=== PATIENT | female | born 1975 | race Caucasian/White ===

== ENCOUNTER 2017-03-26 08:57 | Emergency (ER) | payer MEDICAID ==
[~2017-03-26] VITALS: Ht 177.8 cm; Wt 56.0 kg
[~2017-03-26 08:57] MED LIST: HYDR25TA PO; OXYB5TAB11 PO
[2017-03-26 10:17] VITALS: BP 170/99
[2017-03-26 10:46] LABS: CLARITY URINE CLEAR (CLEAR); COLOR URINE DARK YELLOW (YELLOW); KETONES URINE NEGATIVE (NEGATIVE); LEUKOCYTE ESTERASE URINE 3+ (NEGATIVE); NITRITE URINE POSITIVE (NEGATIVE); OCCULT BLOOD URINE 2+ (NEGATIVE); PH URINE 6.5 (4.5-8.0); PROTEIN URINE 1+ (NEGATIVE)
== END 2017-03-26 13:37 | disposition home or self-care (01) ==
LOC: ER 09:38
DX: N39.0 Urinary tract infection, site not specified (principal); I10 Essential (primary) hypertension
CPT/HCPCS: 81001; 81025; 99283

== ENCOUNTER 2017-07-07 10:08 | Emergency (ER) | payer MEDICAID ==
[~2017-07-07] VITALS: Ht 147.3 cm; Wt 60.0 kg
[2017-07-07] MEDS ORDERED: ONDANSETRON 4MG ODT PO ONE (12:45)
[2017-07-07] MEDS ORDERED: ACETAMINOPHEN 500MG TABLET PO ONE (12:45)
[2017-07-07 14:03] VITALS: BP 130/72
== END 2017-07-07 14:26 | disposition home or self-care (01) ==
LOC: ER 14:15
DX: B34.9 Viral infection, unspecified (principal); I10 Essential (primary) hypertension
CPT/HCPCS: 99283; Q0162

== ENCOUNTER 2018-01-08 11:28 | Emergency (ER) | payer MEDICAID ==
[~2018-01-08] VITALS: Ht 147.3 cm; Wt 55.0 kg
[2018-01-08 12:13] LABS: BASOPHILS % 0.2 % (0.0-2.0); EOSINOPHILS % 0.4 % (0.0-5.0); HEMATOCRIT. 38.9 % (36.0-48.0); HEMOGLOBIN. 13.7 g/dL (12.0-16.0); LYMPHOCYTES % 27.3 % (20.0-50.0); MEAN PLATELET VOLUME 9.8 fl (7.4-10.4); MONOCYTES % 4.8 % (2.0-8.0); NEUTROPHILS % 67.3 % (40.0-76.0); PLATELET 179 x1000/uL (130-400); RED BLOOD CELL COUNT 4.27 mill/uL (4.2-5.4); RED CELL DISTRIBUTION WIDTH 13.2 % (11.6-14.6)
[2018-01-08 12:19] LABS: CHLORIDE 104 mEq/L (98-107)
[2018-01-08] MEDS ORDERED: ASPIRIN 81MG TABLET PO ONE (13:15)
[2018-01-08 17:27] VITALS: BP 134/71
== END 2018-01-08 17:33 | disposition home or self-care (01) ==
LOC: ER 14:43
DX: R07.89 Other chest pain (principal); M25.512 Pain in left shoulder; E87.6 Hypokalemia; R20.2 Paresthesia of skin; I10 Essential (primary) hypertension; Z79.899 Other long term (current) drug therapy
CPT/HCPCS: 36415; 71045; 80053; 83880; 84484; 85025; 93005; 99285